=== PATIENT | female | born 2000 | race Caucasian/White ===

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

== ENCOUNTER → 2022-09-01 | Outpatient (CLI) | payer OTHER ==
[2022-09-01 14:41] VITALS: BP 118/81; PULSE 92; TEMP 97.9; BMI 48.9
--- NOTE | 2022-09-01 15:28 | P.HPBAR ---
Bariatric H&P - History & Physicial H&P Date: 09/01/22 History & Physicial: Visit/CC: new patient Patient initial contact: Initial weight: Initial weight in pounds: Height: 5 ft 3.5 in Initial BMI: Last weight: Current weight: 127.459 kg Current weight in pounds: 281.00 Current BMI: 48.9 [place] body weight (based on NIH guidelines): 53.297 kg Excess body weight loss: The patient is a 21 year-old F who presents for Bariatric Assessment. She takes medications for her acid reflux omeprazole for over 3 years. Past scope almost 2 years ago demonstrated esophagitis. She is looking into the sleeve. She has her gallbladder. No family members with gallbladder problems. No abdominal pain. She tried adipex for weight loss twice but without moderate weight loss. She tried gym memberships. She has immediate weight regain. Most weight loss of 10 pounds. She has sinus infections. Her father has obesity and on her father side. She has limited knowledge of her father's side. No known crohns disease or ulcerative colitis. No dysphagia. She has reflux at night. She has its worst when laying down. No symptoms with bending forward to pick items. She has lower back pain. She denies hip pain. She has sleep apnea. No ankle pain. No other surgeries to the abdomen. She requires sleep apnea machine. She snores. Past Medical History Past Medical History: Asthma, GERD/Reflux Additional Past Medical History / Comment(s): esophagitis History of Any Multi-Drug Resistant Organisms: None Reported Past Surgical History: No Surgical Hx Reported Additional Past Surgical History / Comment(s): EGD Past Anesthesia/Blood Transfusion Reactions: No Reported Reaction Past Psychological History: No Psychological Hx Reported Smoking Status: Former smoker, Vaper Past Alcohol Use History: None Reported Additional Past Alcohol Use History / Comment(s): Pt. states she currently vapes nicotine. Past Drug Use History: None Reported Surgical - Exam Vital Signs Temp Pulse BP 97.9 F 92 118/81 09/01/22 14:33 09/01/22 14:33 09/01/22 14:33 Bariatric Checklist Checklist: Plan: Checklist: EGD: 1. Hiatal hernia: 2. H. Pylori: HgbA1c: Vitamin D: Smoking: Primary care physician referral: Bing Souza NP Psychiatry clearance: Cardiology clearance: Sleep study: Diet journal: VTE risk score: VTE risk level: Rehab needs at discharge:
== END ==
LOC: BARWHC3 14:03
PROVIDERS: ATTEND Surgery Plastic and Reconstructive Surgery
DX: E66.01 Morbid (severe) obesity due to excess calories (principal); K21.9 Gastro-esophageal reflux disease without esophagitis; Z87.891 Personal history of nicotine dependence; M54.50 Low back pain, unspecified; Z68.42 Body mass index [BMI] 45.0-49.9, adult; J45.909 Unspecified asthma, uncomplicated
CPT/HCPCS: 99212

== ENCOUNTER 2022-09-27 08:14 | Day surgery (SDC) | payer OTHER ==
[2022-09-23 12:08] VITALS: BMI 48.0
--- NOTE | 2022-09-27 07:33 | P.GSHP ---
History of Present Illness H&P Date: 09/27/22 CHIEF COMPLAINT: GERD HISTORY OF PRESENT ILLNESS: The patient is a 21-year-old female who presents reports gastroesophageal reflux disease. Upper endoscopy was offered for further evaluation and management. PAST MEDICAL HISTORY: Please see list. PAST SURGICAL HISTORY: Please see list. MEDICATIONS: Please see list. ALLERGIES: Please see list. SOCIAL HISTORY: No illicit drug use FAMILY HISTORY: No reports of Crohn disease or ulcerative colitis. REVIEW OF ORGAN SYSTEMS: CONSTITUTIONAL: No reports of fevers or chills. GI: Denies any blood in stools or constipation. PHYSICAL EXAM: VITAL SIGNS: Stable GENERAL: Well-developed and pleasant in no acute distress. HEENT: No scleral icterus. Extraocular movements grossly intact. Moist buccal mucosa. NECK: Supple without lymphadenopathy. CHEST: Unlabored respirations. Equal bilateral excursions. CARDIOVASCULAR: Regular rate and rhythm. Distal 2+ pulses. ABDOMEN: Soft, nondistended. MUSCULOSKELETAL: No clubbing, cyanosis, or edema. ASSESSMENT: 1. Gastroesophageal reflux disease PLAN: 1. Recommend proceeding with an upper endoscopy Past Medical History Past Medical History: Asthma, GERD/Reflux Additional Past Medical History / Comment(s): Hx esophagitis, exercise induced asthma. History of Any Multi-Drug Resistant Organisms: None Reported Past Surgical History: No Surgical Hx Reported Additional Past Surgical History / Comment(s): EGD (2021) Past Anesthesia/Blood Transfusion Reactions: No Reported Reaction Past Psychological History: Anxiety, Depression Additional Psychological History / Comment(s): NO MEDS Smoking Status: Never smoker, Vaper Past Alcohol Use History: None Reported Additional Past Alcohol Use History / Comment(s): VAPES , VAPING FOR 2 YEARS. Past Drug Use History: None Reported - Past Family History Mother Family Medical History: No Reported History Medications and Allergies Home Medications Medication Instructions Recorded Confirmed Type Norelgestromin/Ethin.estradiol 1 patch TRANSDERM WEEKLY 09/01/22 09/23/22 History [Zafemy 150-35 Mcg/Day Patch] Omeprazole 20 mg PO DAILY 09/01/22 09/23/22 History Albuterol Inhaler [Ventolin Hfa 1 - 2 puff INHALATION Q6H PRN 09/23/22 09/23/22 History Inhaler] Allergies Allergy/AdvReac Type Severity Reaction Status Date / Time No Known Allergies Allergy Verified 09/23/22 11:54
[~2022-09-27 08:14] MED LIST: LACTATED RINGERS 1,000 ML IV SCH
[2022-09-27] MEDS ORDERED: LIDOCAINE 1% (10MG/ML) FOR IV START INTRADERMA ONE (08:45)
[2022-09-27 08:51] VITALS: RESP 16; TEMP 98.1
[2022-09-27] MEDS ORDERED: LIDOCAINE 2% INJ 20 MG/ML (2 ML VIAL) ONE (08:55)
[2022-09-27] MEDS ORDERED: PROPOFOL 10 MG/ML 20 ML VIAL IV ONE (08:55)
--- NOTE | 2022-09-27 09:25 | P.PCN ---
Date of Procedure: 09/27/22 Description of Procedure: PREOPERATIVE DIAGNOSIS: Gastroesophageal reflux disease. Morbid obesity. POSTOPERATIVE DIAGNOSIS: Gastroesophageal reflux disease with erosive esophagitis Morbid obesity. Gastritis. Diaphragmatic hiatal hernia OPERATION: Esophagogastroduodenoscopy with biopsies along antrum, duodenum and GE junction SURGEON: Vanessa Lucero MD ANESTHESIA: MAC. INDICATIONS: The patient is a 47-year-old female who presents with reflux disease. Benefits and risks of the procedure were described. Informed consent was obtained. DESCRIPTION: The patient was brought into the endoscopy suite and laid in the left lateral decubitus position. An Olympus gastroscope was passed along the posterior oropharynx down to the distal esophagus where the squamocolumnar junction was encountered at 35 cm from the incisors. The stomach was entered and no bile reflux was found. Additional findings are listed below. Biopsies with cold forceps were obtained of the antrum. The first through third portion of the duodenum was examined. Retroflexion of the scope confirmed Hill grade 3 lower esophageal valve. The squamocolumnar junction demonstrated LA grade C erosive esophagitis. The stomach was desufflated. The patient tolerated the procedure well. FINDINGS: Squamocolumnar junction 35 cm from the incisors. Diaphragmatic hiatus at 36 cm. Hill grade 3 lower esophageal valve. LA grade C erosive esophagitis. Biopsies obtained of the duodenum. Chronic gastritis with biopsies obtained. Biopsies obtained and GE junction RECOMMENDATIONS: Upper endoscopy as needed. Omeprazole 40 mg daily Plan - Discharge Summary New Discharge Prescriptions: New Omeprazole [PriLOSEC] 40 mg PO DAILY #14 cap Continue Albuterol Inhaler [Ventolin Hfa Inhaler] 1 - 2 puff INHALATION Q6H PRN PRN Reason: Shortness Of Breath Norelgestromin/Ethin.estradiol [Zafemy 150-35 Mcg/Day Patch] 1 patch TRANSDERM WEEKLY Omeprazole 20 mg PO DAILY Discharge Medication List Norelgestromin/Ethin.estradiol [Zafemy 150-35 Mcg/Day Patch] 1 patch TRANSDERM WEEKLY 09/01/22 [History] Omeprazole 20 mg PO DAILY 09/01/22 [History] Albuterol Inhaler [Ventolin Hfa Inhaler] 1 - 2 puff INHALATION Q6H PRN 09/23/22 [History] Omeprazole [PriLOSEC] 40 mg PO DAILY #14 cap 09/27/22 [Rx] [place] [facility]Ref[place] [facility] [place] [place] - [place] Patient Instructions/Handouts: Gastritis (DC) Discharge Disposition: HOME SELF-CARE
[2022-09-27 09:31] VITALS: BP 122/78; PULSE 72
== END 2022-09-27 10:05 | disposition home or self-care (01) ==
LOC: ORWHC2ENDO 08:14
PROVIDERS: ATTEND Surgery Plastic and Reconstructive Surgery
DX: K29.90 Gastroduodenitis, unspecified, without bleeding (principal); K21.00 Gastro-esophageal reflux disease with esophagitis, without bleeding; K44.9 Diaphragmatic hernia without obstruction or gangrene; E66.01 Morbid (severe) obesity due to excess calories; Z68.42 Body mass index [BMI] 45.0-49.9, adult; J45.990 Exercise induced bronchospasm; K21.9 Gastro-esophageal reflux disease without esophagitis; F41.9 Anxiety disorder, unspecified; G47.33 Obstructive sleep apnea (adult) (pediatric); F32.A Depression, unspecified; F17.290 Nicotine dependence, other tobacco product, uncomplicated; Z79.51 Long term (current) use of inhaled steroids; Z79.899 Other long term (current) drug therapy
CPT/HCPCS: 81025; 43239; J2704; J2001; 88305; 88312

== ENCOUNTER → 2022-11-15 | Outpatient (CLI) | payer OTHER ==
[2022-11-15 12:30] VITALS: BMI 48.7
== END ==
LOC: BARWHC3 09:15
PROVIDERS: ATTEND Surgery Plastic and Reconstructive Surgery
DX: E66.01 Morbid (severe) obesity due to excess calories (principal); Z71.3 Dietary counseling and surveillance; Z68.42 Body mass index [BMI] 45.0-49.9, adult
CPT/HCPCS: 97804

== ENCOUNTER → 2023-02-23 | Outpatient (CLI) | payer OTHER ==
[2023-02-23 13:05] LABS: INR 0.9 (<1.2); Partial Thromboplastin Time 26.9 sec (22.0-30.0); Prothrombin Time 10.2 sec (10.0-12.5)
[2023-02-23 17:22] LABS: Basophils # (A) 0.04 X 10*3/uL (0.00-0.10); Basophils % (A) 0.5 %; Eosinophils # (A) 0.32 X 10*3/uL (0.04-0.35); Eosinophils % (A) 4.4 %; HCT 39.4 % (37.2-46.3); HGB 12.4 g/dL (12.0-15.0); Lymphocytes # (A) 2.53 X 10*3/uL (0.90-5.00); Lymphocytes % (A) 34.7 %; MCH 25.6 pg (27.0-32.0); MCHC 31.5 g/dL (32.0-37.0); MCV 81.2 FL (80.0-97.0); Mean Platelet Volume 11.8 FL (9.5-12.2); Monocytes # (A) 0.58 X 10*3/uL (0.20-1.00); Monocytes % (A) 7.9 %; NRBC Per 100 WBC 0 X 10*3/uL (0.00-0.01); Neutrophils # (A) 3.81 X 10*3/uL (1.80-7.70); Neutrophils % (A) 52.2 %; Platelet Count 308 X 10*3/uL (140-440); RBC 4.85 X 10*6/uL (4.10-5.20); RDW 13.6 % (11.5-14.5)
[2023-02-23 17:41] LABS: % Iron Saturation 18.61 (12.00-45.00); ALT 25 U/L (8-44); AST 23 U/L (13-35); Albumin 3.7 g/dL (3.8-4.9); Albumin/Globulin Ratio 1.32 Ratio (1.60-3.17); Alkaline Phosphatase 63 U/L (41-126); BUN/Creat Ratio 13.62 Ratio (12.00-20.00); Blood Urea Nitrogen 10.9 mg/dL (9.0-27.0); Calcium 9.3 mg/dL (8.7-10.3); Carbon Dioxide 22.3 mmol/L (21.6-31.8); Chloride 105 mmol/L (96-109); Chol/HDL Ratio 4.52 Ratio; Ferritin 27.8 ng/mL (10.0-291.0); Globulin 2.8 g/dL (1.6-3.3); Glucose 110 mg/dL (70-110); Iron 94 UG/DL (50-170); Phosphorus 2.7 mg/dL (2.4-5.1); Potassium 4.1 mmol/L (3.5-5.5); Sodium 139 mmol/L (135-145); Total Bilirubin 0.3 mg/dL (0.3-1.2); Total Iron Binding Capacity 505 UG/DL (228-460); Total Protein 6.5 g/dL (6.2-8.2)
[2023-02-23 17:53] LABS: Prealbumin 21.2 mg/dL (18.0-42.0)
[2023-02-23 21:43] LABS: Urine Alcohol Negative (Negative); Urine Barbiturate Negative (Negative); Urine Cocaine Negative (Negative); Urine Methadone Negative (Negative); Urine Opiates Negative (Negative); Urine Phencyclidine Negative (Negative)
[2023-02-25 11:19] LABS: Zinc, Serum 55 ug/dL (60-130)
== END | disposition home or self-care (01) ==
LOC: LABWHC1 11:20
PROVIDERS: ATTEND Surgery Plastic and Reconstructive Surgery
DX: E66.01 Morbid (severe) obesity due to excess calories (principal); E89.1 Postprocedural hypoinsulinemia; D50.8 Other iron deficiency anemias; E44.0 Moderate protein-calorie malnutrition; E45 Retarded development following protein-calorie malnutrition; E44.1 Mild protein-calorie malnutrition; E55.9 Vitamin D deficiency, unspecified; K74.1 Hepatic sclerosis; N19 Unspecified kidney failure; T56.894A Toxic effect of other metals, undetermined, initial encounter; K50.90 Crohn's disease, unspecified, without complications
CPT/HCPCS: 84255; 84134; 84425; 80061; 80053; 82607; 82728; 82525; 82746; 83540; 83550; 83735; 84100; 84443; 84590; 84630; 85025; 85610; 85730; 82306; 80306; 83970; 83036; 36415; G0480; 80323

== ENCOUNTER → 2023-03-07 | Outpatient (CLI) | payer OTHER ==
[2023-03-10 07:37] LABS: Anabasine Urine <2.0 ng/mL (<2.0)
== END | disposition home or self-care (01) ==
LOC: LABWHC1 08:05
PROVIDERS: ATTEND Surgery Plastic and Reconstructive Surgery
DX: Z00.00 Encounter for general adult medical examination without abnormal findings (principal); E66.01 Morbid (severe) obesity due to excess calories
CPT/HCPCS: 80307; G0480; 80323

== ENCOUNTER 2023-03-14 06:37 | Inpatient (IN) | payer OTHER ==
[~2023-03-14 06:37] MED LIST changes: +ACETAMINOPHEN TAB 500 MG TAB PO PRN; +ALVIMOPAN 12 MG CAPSULE PO PRN; +ENOXAPARIN 40 MG/0.4 ML SYRINGE SQ PRN; -LACTATED RINGERS 1,000 ML IV SCH; +ONDANSETRON 4 MG/2 ML VIAL IVP PRN; +ceFAZolin 3 GM in SODIUM CHLORIDE 0.9% 100 ML IVPB PRN
[2023-03-14] MEDS ORDERED: ONDANSETRON 4 MG/2 ML VIAL IVP ONE ×2 (07:09→12:47)
[2023-03-14] MEDS ORDERED: HYDROmorphone 0.5 MG/0.5 ML SYRINGE IVP PRN (07:09)
[2023-03-14] MEDS ORDERED: LIDOCAINE 1% (10MG/ML) FOR IV START INTRADERMA PRN (07:09)
[2023-03-14] MEDS ORDERED: SCOPOLAMINE 1 MG/72 HR PATCH TRANSDERM ONE (07:09)
[2023-03-14] MEDS ORDERED: droPERidol 5 MG/2 ML VIAL IVP ONE ×2 (07:09→16:29)
[2023-03-14] MEDS ORDERED: DEXAMETHASONE SOD PHOSPHATE 4 MG/ML 1 ML VIAL IV ONE (07:09)
[2023-03-14] MEDS: LACTATED RINGERS 1,000 ML IV SCH (07:25)
--- NOTE | 2023-03-14 07:54 | P.GSHP ---
History of Present Illness H&P Date: 03/14/23 CHIEF COMPLAINT: Morbid obesity HISTORY OF PRESENT ILLNESS: Krystal Sandy is a 22-year-old female who comes with lifelong morbid obesity. As result of morbid obesity, she has developed hypertensive heart disease, obstructive sleep apnea, osteoarthritis of the hips and knees. She has completed medical supervised weight loss. She completed medical including cardiac assessment. She has completed psychological risk assessment. All surgical options were reviewed. She elected for sleeve ga strectomy At height of 5 feet 4 inches, her ideal body weight is 144 pounds. She comes in 273 pounds. Her body mass index is 47.0. t. PAST MEDICAL HISTORY: 1. Morbid obesity due to excess calories 2. Body mass index of 47.0 3. Osteoarthritis of the knees. 4. Osteoarthritis of the lower back. 5. Hypertensive heart disease. 6. Gastroesophageal reflux disease 7. Generalized anxiety disorder 8. Obstructive sleep apnea 9. Depressive disorder PAST SURGICAL HISTORY: 1. See list HOME MEDICATIONS: ALLERGIES: SOCIAL HISTORY: No past tobacco use. FAMILY HISTORY: No family history of ulcerative colitis disease or Crohn's disease. Family history of morbid obesity. No lupus in the family. No reports of stomach or esophageal cancer. REVIEW OF ORGAN SYSTEMS: CONSTITUTIONAL: At height of 5 feet 4 inches, her ideal body weight is 144 pounds. HEENT: Denies any active troubles with vision or hearing. ENDOCRINE: No diabetes. No hypothyroidism. CARDIOVASCULAR: Past reports of palpitations or heart attacks or chest pain. RESPIRATORY: Has daytime somnolence. GASTROINTESTINAL: Denies any bright red blood per rectum. Has gastroesophageal reflux disease. MUSCULOSKELETAL: Has lower back pain and joint pain. Has osteoarthritis of the knees. NEURO: No headaches. No seizure disorders. PSYCH: Has depression. No suicidal ideation. RHEUMATOLOGIC: No lupus. No rheumatoid arthritis. HEMATOLOGIC: Denies any abnormal bleeding or bruising. No personal history of DVTs. SKIN: Has rash. No skin cancer. PHYSICAL EXAM: VITAL SIGNS: Height 5 foot 4 inches, weight 273 pounds. BMI 47.0 GENERAL: Well-developed in no acute distress. HEENT: No scleral icterus. Extraocular movements grossly intact. Hears conversational speech. No nasal drainage. NECK: Supple without lymphadenopathy. CHEST: Nonlabored respirations with equal bilateral excursions. CARDIOVASCULAR: Regular rate and regular rhythm. Distal 2+ pulses. ABDOMEN: Obese, soft, nontender, nondistended. MUSCULOSKELETAL: No clubbing, cyanosis. NEURO: No focal or lateralizing signs. Cranial nerves 2 through 12 grossly within normal limits. PSYCH: Appropriate affect. Alert and oriented to person, place and time. SKIN: Good skin turgor. Well perfused. ASSESSMENT: 1. Morbid obesity due to excess calories 2. Body mass index of 47.0 3. Osteoarthritis of the knees. 4. Osteoarthritis of the lower back. 5. Hypertensive heart disease. 6. Gastroesophageal reflux disease 7. Generalized anxiety disorder 8. Obstructive sleep apnea 9. Depressive disorder PLAN: 1. Bariatric options between a sleeve, band and a Shana-en-Y gastric bypass were reviewed in detail. The patient elected for a sleeve. Robotic assisted approach described. 2. The [place] [facility] Data was also reviewed with benefits and risks as described. 3. An 8 page second-generation bariatric consent form was reviewed in detail including potential of bleeding, infection, leaks, adequate weight loss, nutritional deficiencies which the patient demonstrated understanding of the risks. 4. A 2 week high-protein low caloric 800 kcal diet described to address hepatomegaly. 5. Preoperative labs including complete metabolic panel and CBC with type and screen recommended. 6. DVT prophylaxis per [place] [facility]. 7. Antibiotic prophylaxis. 8. Inpatient hospitalization anticipated for more than 2 nights. 9. All questions and concerns were addressed with the patient. 10. She is at elevated risk for perioperative complications secondary to sleep apnea, hypertensive heart disease and tobacco exposure, secondhand 11. Overall, patient has expressed understanding of bariatric care including postoperative diet and commitment of lifestyle. Patient should benefit from surgical intervention for correction of her morbid obesity. Past Medical History Past Medical History: Asthma, GERD/Reflux, Sleep Apnea/CPAP/BIPAP Additional Past Medical History / Comment(s): Hx esophagitis, exercise induced asthma. No CPAP use. History of Any Multi-Drug Resistant Organisms: None Reported Past Surgical History: No Surgical Hx Reported Additional Past Surgical History / Comment(s): EGD. Past Anesthesia/Blood Transfusion Reactions: No Reported Reaction Past Psychological History: Anxiety, Depression Additional Psychological History / Comment(s): No medications needed in 2 yrs now. Smoking Status: Never smoker, Vaper Past Alcohol Use History: None Reported Additional Past Alcohol Use History / Comment(s): VAPES, VAPING FOR 2 YEARS, QUIT DEC 2022. Past Drug Use History: None Reported - Past Family History Mother Family Medical History: No Reported History Medications and Allergies Home Medications Medication Instructions Recorded Confirmed Type Albuterol Inhaler [Ventolin Hfa 1 - 2 puff INHALATION Q6H PRN 09/23/22 03/10/23 History Inhaler] Omeprazole [PriLOSEC] 40 mg PO QAM 03/10/23 03/14/23 History Allergies Allergy/AdvReac Type Severity Reaction Status Date / Time No Known Allergies Allergy Verified 03/14/23 07:27 Surgical - Exam Vital Signs Temp Pulse Resp BP Pulse Ox 97.7 F 76 18 122/60 98 03/14/23 07:29 03/14/23 07:29 03/14/23 07:29 03/14/23 07:29 03/14/23 07:29
[2023-03-14] MEDS ORDERED: SUCCINYLCHOLINE CHLORIDE 200 MG/10 ML VIAL IV ONE (08:50)
[2023-03-14] MEDS ORDERED: PROPOFOL 10 MG/ML 20 ML VIAL IV ONE (08:50)
[2023-03-14] MEDS ORDERED: fentaNYL (PF) 50 MCG/ML 2 ML AMP ONE (08:50)
[2023-03-14] MEDS ORDERED: ROCURONIUM 10 MG/ML (5 ML VIAL) IV ONE (08:50)
[2023-03-14] MEDS ORDERED: NEOSTIGMINE 1 MG/ML 10 ML VIAL ONE (08:50)
[2023-03-14] MEDS ORDERED: MIDAZOLAM 2 MG/2 ML VIAL ONE (08:50)
[2023-03-14] MEDS ORDERED: KETOROLAC 15 MG/ML 1 ML VIAL ONE (08:50)
[2023-03-14] MEDS ORDERED: LIDOCAINE 1% INJ 10MG/ML (20 ML MDV) ONE (08:50)
[2023-03-14] MEDS ORDERED: GLYCOPYRROLATE 0.2 MG/ML 2 ML VIAL ONE (08:50)
[2023-03-14] MEDS ORDERED: LIDOCAINE 1%-EPI 1:100,000 50 ML VIAL SQ ONE (09:27)
[2023-03-14] MEDS ORDERED: LACTATED RINGERS 1,000 ML IV ONE (10:28)
[2023-03-14] MEDS ORDERED: diphenhydrAMINE 50 MG/ML 1 ML VIAL IVP PRN (10:58)
[2023-03-14] MEDS ORDERED: NALOXONE 0.4 MG/ML 1 ML VIAL IV PRN (10:58)
[2023-03-14] MEDS ORDERED: HYDROmorphone 1 MG/ML 1 ML SYRINGE IVP PRN (10:58)
[2023-03-14] MEDS ORDERED: SODIUM CHLORIDE 0.9% 2,000 ML IV ONE (11:02)
--- NOTE | 2023-03-14 11:16 | P.OP ---
Date of Procedure: 03/14/23 Description of Procedure: SURGEON: LALITO DAWN MD PREOPERATIVE DIAGNOSES: 1. Morbid obesity due to excess calories 2. Body mass index of 48.0 3. Osteoarthritis of the knees. 4. Osteoarthritis of the lower back. 5. Depressive disorder 6. Gastroesophageal reflux disease 7. Generalized anxiety disorder 8. Obstructive sleep apnea POSTOPERATIVE DIAGNOSES: 1. Morbid obesity due to excess calories 2. Body mass index of 48.0 3. Osteoarthritis of the knees. 4. Osteoarthritis of the lower back. 5. Depressive disorder 6. Gastroesophageal reflux disease 7. Generalized anxiety disorder 8. Obstructive sleep apnea OPERATION: 1. Robotic assisted daVinci Xi laparoscopic sleeve gastrectomy with 40-Jordanian bougie, multiport. 2. Intraoperative esophagogastroduodenoscopy. ANESTHESIA: Gen. local anesthetic ESTIMATED BLOOD LOSS: 5 mL SPECIMENS REMOVED: Sleeve gastrectomy COMPLICATIONS: None. FINDINGS: 1. Negative intraoperative esophagogastrojejunoscopy leak test. 2. No hepatomegaly and no large hiatus hernia. 3. Total of 6 staplers used including 5 - 60 mm blue robot pam and 1 - 60 mm green robot loads used to create the gastric sleeve. 4. Sleeve gastrectomy, 26 x 4 cm INDICATIONS: Krystal Sandy is a 22-year-old female who comes with lifelong morbid obesity. As result of morbid obesity, she has developed obstructive sleep apnea, osteoarthritis of the hips and knees. She has completed medical supervised weight loss. She completed medical including cardiac assessment. She has completed psychological risk assessment. All surgical options were reviewed. She elected for sleeve gastrectomy At height of 5 feet 4 inches, her ideal body weight is 144 pounds. She comes in 273 pounds. Her body mass index is 47.0. She is 129 pounds overweight. All surgical options for morbid obesity had been described using the [place] bariatric surgery collaborative comorbidity resolution including complication risk score. A second-generation bariatric consent form was described in detail including the possibility of protein malnutrition, leaks, gastric stricture, venous thrombosis, gastroesophageal reflux disease, need for further surgery for which she demonstrated understanding. Benefits and risks of the procedure were described at length. Informed consent was obtained. DESCRIPTION: The patient was brought into the operating room theater. Preoperatively she had received Lovenox subcutaneously for DVT prophylaxis. Additionally she had Peridex oral solution as an oral decontaminant. After general induction, the abdomen was prepped and draped in standard sterile fashion. An Ioban draping was placed along the abdomen. A robotic da Shawn Xi system was prepped and primed. At 15 cm from the xiphoid, proposed port sites were marked with indelible marker along the anterior axillary line bilaterally, mid axillary line bilaterally with each ports were marked 10 to 15 cm from each other. The robotic stapler port was marked for the right midclavicular line. A 5 mm 0 degrees laparoscopic trocar entry was performed along the left upper quadrant. The abdomen was insufflated to 15 mmHg pressure was tolerated well. Diagnostic laparoscopy demonstrated no injury to bowel, viscera, or mesentery. No evidence of large hiatus hernia was identified. The liver edge was sharp consistent with 2 week low-carb high-protein diet. A 8 mm port was placed along the left upper abdominal wall after exchanging the 5 mm port. A separate 8 mm port was placed along the left lateral abdominal wall. Please note that the ports were placed at least 20 cm away from the target anatomy. Care was taken to check each robotic arms were safely away from collision with the bed or the patient. Next, 12-mm robot stapler port was placed along the right upper quadrant. The camera 8-mm port was maintained along the epigastrium. The patient was repositioned in reverse Trendelenburg position at 21-degrees after lowering the bed. The robot was docked along the left side of the patient. Using a grasper for arm 4, a vessel sealer for arm 3, including grasper for arm 1, the robotic system was docked and primed as described. Instruments were interchanged by the clinical medical assistant for stapler loads. The camera was placed at 30- degrees down. I had sat at the console. The pylorus was identified and 6 cm proximally along the greater curvature of the stomach, the short gastrics were mobilized upwards to the angle of His using a vessel sealer. Hemostasis was excellent during this portion of the procedure. Next, the upper pole of the stomach was adherent to the left damon, which was gently dissected free using atraumatic grasper. I went to the head of the bed and placed 40-Jordanian blunt bougie into the stomach. The bougie was readjusted by the nurse airplane electrician. Robotic stapler green load 60 mm 1 followed by blue 60 mm x 5 loads were used to create the sleeve. Initial firing was across the antrum of the stomach towards the angle of His. The staple line was linear without corkscrewing. The space from the angularis incisura of the sleeve was approximately 4 cm. I then went to the head of the bed to perform the intraoperative esophagogastroduodenoscopy leak test. The bougie was withdrawn. The upper pole of the stomach was bathed using normal saline solution. The scope was withdrawn with careful inspection along the staple line for which no leaks were found along the entire length. Additionally,the sleeve was completely hemostatic without any encroachment along the angularis incisura. Its topology was a soft "J". No stricture was encountered upon placement of the scope. The GI tract was desufflated. The patient tolerated this portion of the procedure well. The scope was completely withdrawn. The robot was undocked. I then rescrubbed into case, whereby the irrigation fluid was aspirated from the abdominal cavity. Tisseel fibrin sealant was placed along the entire staple length. Once dried the Hamilton liver retractor was removed. Attention was now brought to removal of the specimen. The distal end of the sleeve gastrectomy specimen was brought out through the 12 mm port at the left upper quadrant. The specimen was gently removed en total. No contamination had occurred during this process. All instruments and pneumoperitoneum including irrigation fluid was removed from the abdominal cavity. The 12 mm port site was closed using 0-Vicryl and Héctor Monteiro and irrigated with diluted hydrogen peroxide. The final incisions were closed using subcuticular interrupted suture of 4-0 Monocryl. Exofin was applied to the skin once the skin had been cleansed. OptiFoam dressing was placed along the stomach extraction site. The sleeve specimen was measured and checked also for leaks which none were found. At the end of the procedure, needle, sponge, and instrument count was verified correct by the nursing surgical services director. The patient was taken to the postanesthesia care unit in stable condition. She had tolerated the procedure well. Intraoperative films and findings were reviewed with the patient's family.
[2023-03-14] MEDS ORDERED: ACETAMINOPHEN IV (For NPO) 1,000 MG in EMPTY BAG 1 BAG IVPB SCH (12:00)
[2023-03-14] MEDS ORDERED: ACETAMINOPHEN IV (For NPO) 1,000 MG/100 ML VIAL IVPB ONE (16:00)
[2023-03-14] MEDS ORDERED: DEXAMETHASONE SOD PHOSPHATE 10 MG/ML 1 ML VIAL IVP ONE (17:00)
[2023-03-14] MEDS ORDERED: ceFAZolin 3 GM in SODIUM CHLORIDE 0.9% 100 ML IVPB SCH (17:00)
[2023-03-14] MEDS: ALBUTEROL NEBULIZED 2.5 MG/3 ML INHALATION SCH ×3 (17:03→20:25)
[2023-03-14] MEDS: DEXAMETHASONE SOD PHOSPHATE 4 MG/ML 1 ML VIAL IVP SCH ×2 (17:54→23:29)
[2023-03-14] MEDS: 0.9% NACL WITH KCL 20 MEQ/L 1,000 ML IV SCH ×2 (18:37→18:45)
[2023-03-14] MEDS: METOCLOPRAMIDE 5 MG/ML 2 ML VIAL IVP SCH ×2 (18:38→23:25)
[2023-03-14] MEDS: ONDANSETRON 4 MG/2 ML VIAL IVP SCH ×2 (18:38→23:25)
[2023-03-14] MEDS: SIMETHICONE 80 MG CHEWABLE PO SCH ×2 (18:38→23:25)
[2023-03-14] MEDS: HYOSCYAMINE ORAL DROPS 1.875 MG/15 ML BOTTLE PO SCH ×2 (18:55→23:26)
[2023-03-14 21:06] VITALS: RESP 18
[2023-03-14] MEDS: PANTOPRAZOLE 40 MG/10 ML VIAL IV SCH (21:35)
[2023-03-14] MEDS: ACETAMINOPHEN IV (For NPO) 1,000 MG in EMPTY BAG 1 BAG IVPB SCH (21:35)
[2023-03-15] MEDS: ACETAMINOPHEN IV (For NPO) 1,000 MG in EMPTY BAG 1 BAG IVPB SCH ×2 (03:59→09:42)
[2023-03-15] MEDS: LACTATED RINGERS 1,000 ML IV SCH (05:07)
[2023-03-15] MEDS: SIMETHICONE 80 MG CHEWABLE PO SCH ×2 (06:06→11:57)
[2023-03-15] MEDS: ONDANSETRON 4 MG/2 ML VIAL IVP SCH ×2 (06:06→11:50)
[2023-03-15] MEDS: HYOSCYAMINE ORAL DROPS 1.875 MG/15 ML BOTTLE PO SCH ×2 (06:07→11:57)
[2023-03-15] MEDS: DEXAMETHASONE SOD PHOSPHATE 4 MG/ML 1 ML VIAL IVP SCH ×2 (06:07→11:57)
[2023-03-15] MEDS: METOCLOPRAMIDE 5 MG/ML 2 ML VIAL IVP SCH ×2 (06:07→11:50)
[2023-03-15] MEDS ORDERED: 0.9% NACL WITH KCL 20 MEQ/L 1,000 ML IV SCH (08:00)
[2023-03-15 08:08] VITALS: TEMP 98.7
[2023-03-15] MEDS: PANTOPRAZOLE 40 MG/10 ML VIAL IV SCH (08:13)
[2023-03-15 08:57] LABS: Basophils # (A) 0.01 X 10*3/uL (0.00-0.10); Basophils % (A) 0.1 %; Eosinophils # (A) 0 X 10*3/uL (0.04-0.35); Eosinophils % (A) 0 %; HCT 37.6 % (37.2-46.3); HGB 12.2 g/dL (12.0-15.0); Lymphocytes % (A) 7.9 %; MCHC 32.4 g/dL (32.0-37.0); MCV 80.2 FL (80.0-97.0); Mean Platelet Volume 12.3 FL (9.5-12.2); Monocytes # (A) 0.51 X 10*3/uL (0.20-1.00); Monocytes % (A) 3.4 %; NRBC Per 100 WBC 0 X 10*3/uL (0.00-0.01); Neutrophils % (A) 88.2 %; Platelet Count 306 X 10*3/uL (140-440); RBC 4.69 X 10*6/uL (4.10-5.20); RDW 12.8 % (11.5-14.5); WBC 15.18 X 10*3/uL (4.50-10.00)
[2023-03-15] MEDS ORDERED: ENOXAPARIN 40 MG/0.4 ML SYRINGE SQ SCH (09:00)
[2023-03-15 09:04] LABS: Blood Urea Nitrogen 5.7 mg/dL (9.0-27.0); Calcium 8.8 mg/dL (8.7-10.3); Carbon Dioxide 15.1 mmol/L (21.6-31.8); Chloride 108 mmol/L (96-109); Magnesium 1.9 mg/dL (1.5-2.4); Phosphorus 2.2 mg/dL (2.4-5.1); Potassium 4.6 mmol/L (3.5-5.5); Sodium 137 mmol/L (135-145)
[2023-03-15] MEDS: ALBUTEROL NEBULIZED 2.5 MG/3 ML INHALATION SCH ×3 (09:46→16:24)
[2023-03-15 11:06] VITALS: BMI 47.0
--- NOTE | 2023-03-15 12:41 | FL ---
EXAMINATION TYPE: FL UGI DATE OF EXAM: 03/15/2023 COMPARISON: None HISTORY: Post gastric sleeve TECHNIQUE: A single contrast Limited UGI study is performed. FINDINGS: Contrast passes from the distal esophagus through the gastric sleeve with no hesitancy. No extravasation of contrast is evident. No free air is noted during this examination. Overhead radiographs were obtained which are unremarkable. IMPRESSION: 1. Normal post gastric sleeve without obstruction or hesitancy. No extravasation.
[2023-03-15 14:01] VITALS: BP 159/80; PULSE 80
--- NOTE | 2023-03-15 15:40 | P.DS ---
Providers Date of admission: 03/14/23 06:37 Expected date of discharge: 03/15/23 Attending physician: Vanessa Lucero Primary care physician: Stated None Hospital Course: Discharge diagnosis 1. Morbid obesity due to excess calories 2. Body mass index of 48.0 3. Osteoarthritis of the knees. 4. Osteoarthritis of the lower back. 5. Depressive disorder 6. Gastroesophageal reflux disease 7. Generalized anxiety disorder 8. Obstructive sleep apnea Hospital course This is a 22-year-old female with lifelong morbid obesity. She status post robotic-assisted laparoscopic sleeve gastrectomy. Patient tolerating diet. Her pain is controlled. She has been up and ambulating. Denies any difficulty urinating. Upper GI shows no evidence of leak or obstruction. Patient is stable for discharge. Physician Certified Nurse Midwife note has been reviewed by physician. Signing provider agrees with the documented findings, assessment, and plan of care. Patient Condition at Discharge: Stable Plan - Discharge Summary Discharge Rx Participant: Yes New Discharge Prescriptions: New Omeprazole [PriLOSEC] 40 mg PO DAILY #30 cap Ondansetron Odt [Zofran Odt] 4 mg PO Q8HR PRN #9 tab PRN Reason: Nausea bisacodyL [Dulcolax] 5 mg PO DAILY PRN #10 tab PRN Reason: Constipation Simethicone 40 mg/0.6 ml Drops [Mylicon Drops] 40 mg PO PCHS PRN #30 ml PRN Reason: Gas Acetaminophen Tab [Tylenol] 1,000 mg PO Q6HR PRN #30 tablet PRN Reason: Pain Continue Albuterol Inhaler [Ventolin Hfa Inhaler] 1 - 2 puff INHALATION Q6H PRN PRN Reason: Shortness Of Breath Discontinued Omeprazole [PriLOSEC] 40 mg PO QAM Discharge Medication List Albuterol Inhaler [Ventolin Hfa Inhaler] 1 - 2 puff INHALATION Q6H PRN 09/23/22 [History] Acetaminophen Tab [Tylenol] 1,000 mg PO Q6HR PRN #30 tablet 03/15/23 [Rx] Omeprazole [PriLOSEC] 40 mg PO DAILY #30 cap 03/15/23 [Rx] Ondansetron Odt [Zofran Odt] 4 mg PO Q8HR PRN #9 tab 03/15/23 [Rx] Simethicone 40 mg/0.6 ml Drops [Mylicon Drops] 40 mg PO PCHS PRN #30 ml 03/15/23 [Rx] bisacodyL [Dulcolax] 5 mg PO DAILY PRN #10 tab 03/15/23 [Rx] [place] [facility]Ref[place] Patient Instructions/Handouts: Nutrition after Bariatric Surgery (DC), Laparoscopic Sleeve Gastrectomy (DC) Activity/Diet/Wound Care/Special Instructions: Liquid diet only for 2 weeks No lifting over 4 pounds in 4 weeks May Shower. No soaking in bath tubs for 2 weeks Please notify your surgeon if you develop nausea and vomiting including new onset of abdominal pain. Continue to use incentive spirometry to prevent pneumonias. Please continue to ambulate at home to prevent blood clots in legs. Follow-up at the bariatric center. May shower. Dressings to be discontinued by surgeon in the office. Drink 64 oz of fluid daily. Start protein shakes on . Notify bariatric center for temp over 101.0, increased pain, drainage from incisions. No straws or carbonated beverages. Liquid diet only. Sugar content should be less than 6 g to avoid dumping syndrome. Take MOM for constipation. CRUSH, OPEN, OR CUT TABLETS LARGER THAN A SIZE OF A TIC TAC Discharge Disposition: HOME SELF-CARE
[2023-03-16] MEDS ORDERED: bisacodyL 5 MG TABLET.DR PO PRN (08:00)
== END 2023-03-15 16:46 | disposition home or self-care (01) | DRG 403 ==
LOC: 2ORMAIN 06:37 → 4SSUR 16:50
PROVIDERS: ADMIT Surgery Plastic and Reconstructive Surgery; ATTEND Surgery Plastic and Reconstructive Surgery
PROC: 0DB64Z3 Excision of Stomach, Percutaneous Endoscopic Approach, Vertical (ICD-10-PCS; principal; 2023-03-14 08:00)
PROC: 8E0W4CZ Robotic Assisted Procedure of Trunk Region, Percutaneous Endoscopic Approach (ICD-10-PCS; principal; 2023-03-14 08:00)
PROC: 0DJ08ZZ Inspection of Upper Intestinal Tract, Via Natural or Artificial Opening Endoscopic (ICD-10-PCS; principal; 2023-03-14 08:00)
DX: E66.01 Morbid (severe) obesity due to excess calories (principal); Z68.42 Body mass index [BMI] 45.0-49.9, adult; R16.0 Hepatomegaly, not elsewhere classified; I11.9 Hypertensive heart disease without heart failure; F32.A Depression, unspecified; G47.33 Obstructive sleep apnea (adult) (pediatric); M16.0 Bilateral primary osteoarthritis of hip; M17.0 Bilateral primary osteoarthritis of knee; K21.9 Gastro-esophageal reflux disease without esophagitis; F41.1 Generalized anxiety disorder; J45.990 Exercise induced bronchospasm; J45.909 Unspecified asthma, uncomplicated; M47.9 Spondylosis, unspecified; Z79.899 Other long term (current) drug therapy; Z71.3 Dietary counseling and surveillance
CPT/HCPCS: 74240; 80051; 81025; 82310; 82565; 83735; 84100; 84520; 85025; 88307

== ENCOUNTER → 2023-03-18 | Outpatient (CLI) | payer OTHER ==
--- NOTE | 2023-03-18 09:57 | P.BASOAP ---
Subjective Progress Note Date: 03/18/23 DATE OF SERVICE: 03/18/2023 CHIEF COMPLAINT: Status post sleeve gastrectomy HISTORY OF PRESENT ILLNESS: Krystal Sandy is a 22-year-old female who is status post sleeve gastrectomy, 03/14/2023. She is 4 days postop. She reports appropriate pain left upper quadrant from her incision. She denies infection. She reports troubles with vision secondary to scopolamine patch which has now discontinued. No reports of nausea or vomiting. No fevers or chills. At height of 5 feet 4 inches, her ideal body weight is 144 pounds. She comes in 283 pounds. Her body mass index was 49.5. PHYSICAL EXAM: VITAL SIGNS: Height 5 foot 3.5 inches, weight 268 pounds. BMI 46.7 Vital Signs Temp 98.3 F 03/18/23 10:03 Pulse 84 03/18/23 10:03 Resp 13 03/18/23 10:03 BP 118/75 03/18/23 10:03 Pulse Ox FiO2 GENERAL: Well-developed in no acute distress. HEENT: No scleral icterus. Extraocular movements grossly intact. Hears conversational speech. No nasal drainage. NECK: Supple without lymphadenopathy. CHEST: Nonlabored respirations with equal bilateral excursions. CARDIOVASCULAR: Regular rate and regular rhythm. Distal 2+ pulses. ABDOMEN: No infection. MUSCULOSKELETAL: No clubbing, cyanosis. NEURO: No focal or lateralizing signs. Cranial nerves 2 through 12 grossly within normal limits. PSYCH: Appropriate affect. Alert and oriented to person, place and time. SKIN: Good skin turgor. Well perfused. ASSESSMENT: 1. Morbid obesity due to excess calories 2. Body mass index of 47.0to 46.7 3. Osteoarthritis of the knees. 4. Osteoarthritis of the lower back. 5. Hypertensive heart disease. 6. Gastroesophageal reflux disease 7. Generalized anxiety disorder 8. Obstructive sleep apnea 9. Depressive disorder 10. Status post sleeve gastrectomy. PLAN: 1. Patient emphasize increased protein intake. 2. Time of lifting restrictions 4 pounds for 4 weeks. 3. Recommend wound care hydrogen peroxide and antibacterial soap. 4. Follow-up in one week. Assessment/Plan Plan: Date: Initial Weight: Initial BMI: Current Weight: Current BMI: Type of Surgery: Total Volume in Band: Previous Volume: Volume Removed: Volume Added: Band Size:
[2023-03-18 10:34] VITALS: BP 118/75; PULSE 84; RESP 13; TEMP 98.3; BMI 46.7
== END ==
LOC: BARWHC3 08:51
PROVIDERS: ATTEND Surgery Plastic and Reconstructive Surgery
DX: E66.01 Morbid (severe) obesity due to excess calories (principal); M17.0 Bilateral primary osteoarthritis of knee; M47.816 Spondylosis without myelopathy or radiculopathy, lumbar region; I11.0 Hypertensive heart disease with heart failure; K21.9 Gastro-esophageal reflux disease without esophagitis; F41.1 Generalized anxiety disorder; G47.33 Obstructive sleep apnea (adult) (pediatric); F32.A Depression, unspecified; Z98.84 Bariatric surgery status; Z68.42 Body mass index [BMI] 45.0-49.9, adult
CPT/HCPCS: 99211

== ENCOUNTER → 2023-03-25 | Outpatient (CLI) | payer OTHER ==
[2023-03-25 10:30] VITALS: BP 133/81; PULSE 86; RESP 12; TEMP 98.3; BMI 45.1
== END ==
LOC: BARWHC3 09:34
PROVIDERS: ATTEND Surgery Plastic and Reconstructive Surgery
DX: Z53.9 Procedure and treatment not carried out, unspecified reason (principal)
CPT/HCPCS: 99211

== ENCOUNTER → 2024-03-07 | Outpatient (CLI) | payer OTHER ==
[2024-03-07 14:32] VITALS: BP 117/82; PULSE 85; RESP 16; TEMP 98.3; BMI 38.9
--- NOTE | 2024-03-07 14:42 | P.HPBAR ---
Bariatric H&P - History & Physicial H&P Date: 03/07/24 History & Physicial: Visit/CC: f/u Patient initial contact: Initial weight: Initial weight in pounds: Height: 5 ft 3.5 in Initial BMI: Last weight: Current weight: 101.151 kg Current weight in pounds: 223.00 Current BMI: 38.9 [place] body weight (based on NIH guidelines): 53.297 kg Excess body weight loss: The patient is a 23 year-old F who presents for Bariatric Assessment. She lost 60 pounds in 1 year. Lost to follow up due to insurance. NO GERD. NO dysphagia. NO abdominal pain. Get baseline with labs. Need food journal. Past Medical History Past Medical History: Asthma, GERD/Reflux Additional Past Medical History / Comment(s): Hx esophagitis, exercise induced asthma. History of Any Multi-Drug Resistant Organisms: None Reported Past Surgical History: No Surgical Hx Reported, Bariatric Surgery Additional Past Surgical History / Comment(s): EGD. Sleeve Gastrectomy 3. Appendectomy september 2023 Past Anesthesia/Blood Transfusion Reactions: No Reported Reaction Past Psychological History: Anxiety, Depression Additional Psychological History / Comment(s): NO MEDS Smoking Status: Former smoker Past Alcohol Use History: None Reported Additional Past Alcohol Use History / Comment(s): No longer Vaping Past Drug Use History: None Reported - Past Family History Mother Family Medical History: No Reported History Surgical - Exam Vital Signs Temp Pulse Resp BP 98.3 F 85 16 117/82 03/07/24 14:27 03/07/24 14:27 03/07/24 14:27 03/07/24 14:27 Bariatric Checklist Checklist: Plan: Checklist: EGD: 1. Hiatal hernia: 2. H. Pylori: HgbA1c: Vitamin D: Smoking: Primary care physician referral: Bing Souza NP Psychiatry clearance: Cardiology clearance: Sleep study: Diet journal: VTE risk score: VTE risk level: Rehab needs at discharge:
[2024-03-07 15:46] LABS: Partial Thromboplastin Time 26.7 sec (22.0-30.0); Prothrombin Time 10.5 sec (10.0-12.5)
[2024-03-07 19:21] LABS: Prealbumin 20.9 mg/dL (18.0-42.0)
[2024-03-07 19:26] LABS: HCT 43.8 % (37.2-46.3); HGB 13.9 g/dL (12.0-15.0); MCH 24.8 pg (27.0-32.0); MCHC 31.7 g/dL (32.0-37.0); MCV 78.1 FL (80.0-97.0); Mean Platelet Volume 11.5 FL (9.5-12.2); NRBC Per 100 WBC 0 X 10*3/uL (0.00-0.01); Platelet Count 285 X 10*3/uL (140-440); RBC 5.61 X 10*6/uL (4.10-5.20); RDW 14.6 % (11.5-14.5); WBC 6.64 X 10*3/uL (4.50-10.00)
[2024-03-07 19:57] LABS: % Iron Saturation 20.89 (12.00-45.00); ALT 16 U/L (8-44); AST 16 U/L (13-35); Albumin 3.9 g/dL (3.8-4.9); Albumin/Globulin Ratio 1.44 Ratio (1.60-3.17); Alkaline Phosphatase 76 U/L (41-126); BUN/Creat Ratio 16.62 Ratio (12.00-20.00); Blood Urea Nitrogen 13.3 mg/dL (9.0-27.0); Carbon Dioxide 25.5 mmol/L (21.6-31.8); Chloride 104 mmol/L (96-109); Chol/HDL Ratio 3.93 Ratio; Ferritin 28.9 ng/mL (10.0-291.0); Globulin 2.7 g/dL (1.6-3.3); Glucose 104 mg/dL (70-110); Iron 103 UG/DL (50-170); LDL Cholesterol,Calculated 138.4 mg/dL (0.0-131.0); Magnesium 1.9 mg/dL (1.5-2.4); Phosphorus 4.1 mg/dL (2.4-5.1); Potassium 4.5 mmol/L (3.5-5.5); Sodium 140 mmol/L (135-145); Total Bilirubin 0.2 mg/dL (0.3-1.2); Total Iron Binding Capacity 493 UG/DL (228-460); Total Protein 6.6 g/dL (6.2-8.2)
[2024-03-08 12:19] LABS: Zinc, Serum 56 ug/dL (60-130)
[2024-03-09 05:58] LABS: Vitamin A 46 ug/dL (38-106)
[2024-03-09 06:26] LABS: Vit B1(Thiamine) 55 ug/L (38-122)
== END ==
LOC: BARWHC3 13:57
PROVIDERS: ATTEND Surgery Plastic and Reconstructive Surgery
DX: E66.01 Morbid (severe) obesity due to excess calories (principal); D50.8 Other iron deficiency anemias; E89.1 Postprocedural hypoinsulinemia; K90.89 Other intestinal malabsorption; K74.1 Hepatic sclerosis; N19 Unspecified kidney failure; T56.894A Toxic effect of other metals, undetermined, initial encounter; K50.90 Crohn's disease, unspecified, without complications; Z87.891 Personal history of nicotine dependence; Z68.38 Body mass index [BMI] 38.0-38.9, adult
CPT/HCPCS: 84255; 84134; 84425; 80061; 80053; 82607; 82728; 82525; 82746; 83540; 83550; 83735; 84100; 84443; 84590; 84630; 85027; 85610; 85730; 82306; 83970; 83036; G0463; 99211